=== PATIENT | female | born 1975 ===

== ENCOUNTER 2016-08-22 16:07 | Inpatient (IN) | payer OTHER ==
[2016-08-22 16:11] VITALS: BMI 22.4
[2016-08-22] MEDS ORDERED: Sodium Chloride 0.9% 1,000 ML IV ONE ×2 (16:38→20:30)
[2016-08-22] MEDS ORDERED: Sodium Chloride 0.9% 1,000 ML ONE (16:43)
[2016-08-22 17:00] LABS: CHLORIDE 96 mmol/L (98-107)
[2016-08-22 17:01] LABS: HEMATOCRIT 34.3 % (34.0-47.0); MEAN CELL VOLUME 77.9 fL (81.0-99.0); MEAN PLATELET VOLUME 8.1 fL (7.2-11.7); PLATELET COUNT 139 K/uL (130-400); POTASSIUM 3.2 mmol/L (3.6-5.2); RED CELL DISTRIBUTION WIDTH 14.8 % (11.5-14.5); SODIUM 135 mmol/L (132-148); WHITE BLOOD COUNT 6.1 K/uL (4.8-10.8)
[2016-08-22 17:03] LABS: ALKALINE PHOSPHATASE 71 U/L (38-126); ALT/SGPT 52 U/L (9-52); AST/SGOT 89 U/L (14-36); BLOOD UREA NITROGEN 14 mg/dL (7-17); CARBON DIOXIDE 25 mmol/L (22-30); GFR AFRICAN-AMERICAN > 60; TOTAL PROTEIN 7.2 g/dL (6.3-8.3)
[2016-08-22 17:04] LABS: CALCIUM 8.9 mg/dl (8.6-10.4); GLUCOSE,RANDOM 153 mg/dL (65-105)
[2016-08-22 17:15] LABS: RBC URINE 13 /hpf (0-3); URINE BILIRUBIN NEGATIVE (NEGATIVE); URINE BLOOD 2+ (NEGATIVE); URINE COLOR Yellow (YELLOW); URINE GLUCOSE (UA) NORMAL (Normal); URINE KETONE NEGATIVE (NEGATIVE); URINE LEUKOCYTE ESTERASE NEG Leu/uL (Negative); URINE PROTEIN NEGATIVE (NEGATIVE); URINE UROBILINOGEN NORMAL mg/dL (0.2-1.0); WBC URINE 1 /hpf (0-5)
[2016-08-22 17:40] LABS: EOS # 0.2 K/uL (0.0-0.7); LYMPH # 0.4 K/uL (1.0-4.3); MONO # 0.1 K/uL (0.0-0.8)
[2016-08-22 17:42] LABS: EOSINOPHIL 3 % (0-4); NEUTROPHIL 48 % (50-75); TOTAL CELLS COUNTED 100
[2016-08-22 18:11] LABS: PARASITE I.D. Plasmodium Vivax
[2016-08-22 18:19] LABS: INTRACELLULAR PARASITE POSITIVE (NEGATIVE)
--- NOTE | 2016-08-22 18:25 | C.PDOC ---
History Of Present Illness 41 year old patient presents to the emergency department complaining of a subjective fever, chills, and body aches since today. Patient has a history malaria from many years ago and she has been treated with "29 injections." Patient has not been to [place] in 5 years. Patient denies cough, shortness of breath, nausea, vomiting, abdominal pain, or diarrhea. Time Seen by Provider: 08/22/16 16:39 Chief Complaint (Nursing): Abdominal Pain History Per: Patient History/Exam Limitations: no limitations Onset/Duration Of Symptoms: Hrs (today) Current Symptoms Are (Timing): Still Present Context: Other Severity: Mild Pain Scale Rating Of: 3 Quality Of Discomfort: "Pain" Associated Symptoms: Fever, Chills Exacerbating Factors: None Alleviating Factors: None Last Bowel Movement: Today Recent travel outside of the [place]: No Past Medical History Reviewed: Historical Data, Nursing Documentation, Vital Signs Vital Signs: Last Vital Signs Temp 99.3 F 08/22/16 18:56 Pulse 99 H 08/22/16 18:56 Resp 20 08/22/16 18:56 BP 88/54 L 08/22/16 18:56 Pulse Ox 99 08/22/16 19:12 Family History: States: Unknown Family Hx - Social History Hx Alcohol Use: No Hx Substance Use: No - Immunization History Hx Tetanus Toxoid Vaccination: No Hx Influenza Vaccination: No Hx Pneumococcal Vaccination: No Review Of Systems Except As Marked, All Systems Reviewed And Found Negative. Constitutional: Positive for: Fever (subjective), Chills, Other (body aches) Respiratory: Negative for: Cough, Shortness of Breath Gastrointestinal: Negative for: Nausea, Vomiting, Abdominal Pain, Diarrhea Physical Exam - Physical Exam Appears: Non-toxic, Other (mild distress) Skin: Warm, Dry Head: Atraumatic, Normacephalic Eye(s): bilateral: Normal Inspection, PERRL, EOMI Ear(s): Bilateral: Normal Nose: Normal Oral Mucosa: Moist Throat: Normal Neck: Normal ROM, Supple Chest: Symmetrical Cardiovascular: Rhythm Regular Respiratory: Normal Breath Sounds, No Rales, No Rhonchi, No Wheezing Gastrointestinal/Abdominal: Soft, No Tenderness Back: Normal Inspection, No CVA Tenderness Extremity: Normal ROM Neurological/Psych: Oriented x3, Normal Speech, Normal Cognition Gait: Steady ED Course And Treatment - Laboratory Results Result Diagrams: 08/22/16 16:49 08/22/16 16:49 Lab Interpretation: Abnormal (41 Bands, smear + plasmodium vivax Malaria) ECG: Interpreted By Me ECG Rhythm: Sinus Rhythm ECG Interpretation: Normal Rate From EC O2 Sat by Pulse Oximetry: 99 (room air) Pulse Ox Interpretation: Normal - Radiology CXR: Interpreted by Me CXR Interpretation: Yes: No Acute Disease Progress Note: Plan: EKG, Labs, Chest x-ray, IV fluids, Toradol, Zofran Reevaluation Time: 18:27 Reassessment Condition: Improved - Physician Consult Information Outcome Of Conversation: 183: d/w Dr. Garcia, Hospitalist Director Work- ok to Adm to D Medical Decision Making Medical Decision Making: malaria, probably due to travel to [place]. defer inital treatment to ID consult per Hospitalist. 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 I have reviewed the chart and agree that the record accurately reflects my personal performance of the history, physical exam, medical decision making, and the department course for this patient. I have also personally directed, reviewed, and agree with the discharge instructions and disposition.
--- NOTE | 2016-08-22 19:12 | CP.PCM.HP ---
<Moises Tristan - Last Filed: 08/24/16 18:28> History of Present Illness - History of Present Illness History of Present Illness: HPI: Patient is a 41 year old [place] female, with PMHx of malaria, presents to the emergency department complaining of fever, chills, and body aches. She reports these symptoms began last evening and was associated with an episode of NBNB vomiting after eating. Pt reports fever was subjective, and headache was bilateral "squeezing pain" that was 8/10 at worst, but was relieved with Motrin. Patient has a history of two prior malaria infections in 1997 and 2003 and reports being treated with "29 injections." Patient was resident of [facility] during previous infections, but has lived in the [place] for the past three years. She has not been to [place] in 5 years, and denies other travel. She admits low back pain from "muscle pull" which happened two weeks ago. Patient denies cough , shortness of breath, chest pain, abdominal pain, or diarrhea. PMHx: Hypotension, Malaria (1997 and 2003 with unknown treatment) PSHx: (2011, no complications) SHx: denies tobacco, alcohol, illicit drugs; lives in [place], homemaker Allergies: NKA FHx: denies PMD: none Present on Admission - Present on Admission Any Indicators Present on Admission: No Review of Systems - Constitutional Constitutional: Chills, Fever, Headache - EENT Eyes: absent: Change in Vision Ears: absent: Decreased Hearing - Cardiovascular Cardiovascular: absent: Chest Pain, Chest Pain at Rest, Dyspnea, Rapid Heart Rate - Respiratory Respiratory: absent: Cough - Gastrointestinal Gastrointestinal: Vomiting (one episode, non-bloody). absent: Abdominal Pain, Nausea - Genitourinary Genitourinary: absent: Dysuria - Musculoskeletal Musculoskeletal: Back Pain (muscle pull recently). absent: Numbness, Tingling - Integumentary Integumentary: absent: Dry Skin, Wounds - Neurological Neurological: absent: Tingling, Weakness - Psychiatric Psychiatric: absent: Anxiety - Endocrine Endocrine: Fatigue - Hematologic/Lymphatic Hematologic: absent: Easy Bleeding, Easy Bruising Past Patient History - Infectious Disease Hx of Infectious Diseases: None - Past Social History Smoking Status: Never Smoked - PSYCHIATRIC Hx Substance Use: No - SURGICAL HISTORY Hx Section: Yes - ANESTHESIA Hx Anesthesia: Yes Hx Anesthesia Reactions: No Meds Allergies/Adverse Reactions: Allergies Allergy/AdvReac Type Severity Reaction Status Date / Time vancomycin AdvReac Intermediate ITCHING Verified 08/24/16 02:55 Physical Exam - Constitutional Appears: Non-toxic, No Acute Distress - Head Exam Head Exam: ATRAUMATIC, NORMAL INSPECTION, NORMOCEPHALIC - Eye Exam Eye Exam: EOMI Pupil Exam: PERRL - ENT Exam ENT Exam: Mucous Membranes Moist - Respiratory Exam Respiratory Exam: Clear to Auscultation Bilateral, NORMAL BREATHING PATTERN. absent: Rales, Rhonchi, Wheezes - Cardiovascular Exam Cardiovascular Exam: REGULAR RHYTHM, +S1, +S2 - GI/Abdominal Exam GI & Abdominal Exam: Normal Bowel Sounds, Soft, Tenderness (RUQ) - Extremities Exam Extremities exam: Positive for: normal inspection - Back Exam Back exam: absent: CVA tenderness (L), CVA tenderness (R) - Neurological Exam Neurological exam: Alert, Oriented x3 - Psychiatric Exam Psychiatric exam: Normal Affect - Skin Skin Exam: Normal Color, Warm Results - Vital Signs Recent Vital Signs: Last Vital Signs Temp 99.3 F 08/22/16 18:56 Pulse 99 H 08/22/16 18:56 Resp 20 08/22/16 18:56 BP 88/54 L 08/22/16 18:56 Pulse Ox 99 08/22/16 19:06 - Labs Result Diagrams: 08/22/16 16:49 08/22/16 16:49 Assessment & Plan - Assessment and Plan (Free Text) Assessment: 41 yo [place] female with PMHx of two prior malaria infections and hypotension, presenting with fever, chills, fatigue. 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 Plan: Malaria Admit to med/surg Hx of two prior infections w. unknown treatment (1997, 2003) Parasite smear - Plasmodium vivax ID consult: Dr. Leyva, cinthya appreciated - Malarone 250/100mg PO x 3 days, then Primaquine 26.3mg PO x 14 days Bandemia Left shift, 41 Bands WBC WNL f/u CBC in AM Fever Cyclical subjective for last 3 days Afebrile in hospital Tylenol 650mg PO Q6H PRN Isolated AST elevation AST 89 Monitor Abnormal UA UA (08/22/16): 2+blood Pt on day 3 of period Consider repeat Hx of hypotension Pt admits normal pressure 85/55 NS w. KCl 20meq @ 50cc Monitor Electrolyte abnormalities K 3.2 on presentation NS w. KCl 20meq @ 50cc f/u AM CMP Prophylaxis SCDs Pepcid 20mg PO BID Heparin 5000u Q12H <Julián Lara - Last Filed: 08/24/16 23:40> Results - Vital Signs Recent Vital Signs: Last Vital Signs Temp 98.2 F 08/24/16 16:00 Pulse 78 08/24/16 16:00 Resp 20 08/24/16 16:00 BP 111/70 08/24/16 16:00 Pulse Ox 100 08/24/16 16:00 - Labs Result Diagrams: 08/24/16 07:26 08/24/16 07:26 Labs: Laboratory Results - last 24 hr 08/24/16 08/24/16 08/24/16 07:26 07:26 07:26 WBC 8.4 RBC 4.17 Hgb 10.2 L Hct 32.3 L MCV 77.4 L MCH 24.5 L MCHC 31.7 L RDW 15.8 H Plt Count 160 MPV 8.6 Neut % (Auto) 81.1 H Lymph % (Auto) 15.8 L [place] % (Auto) 2.6 Eos % (Auto) 0.1 Baso % (Auto) 0.4 Neut # 6.8 Lymph # 1.3 [place] # 0.2 Eos # 0.0 Baso # 0.0 Retic Count Sodium 138 Potassium 4.2 Chloride 108 H Carbon Dioxide 24 Anion Gap 11 BUN 7 Creatinine 0.7 Est GFR ( Amer) > 60 Est GFR (Non-Af Amer) > 60 Random Glucose 132 H Calcium 7.1 L Phosphorus 2.2 L Magnesium 2.1 Iron 83 TIBC 375 % Saturation 22 Transferrin Ferritin 68.8 Total Bilirubin 0.7 AST 23 ALT 38 Alkaline Phosphatase 54 Lactate Dehydrogenase 409 Total Protein 6.3 Albumin 3.0 L Globulin 3.4 Albumin/Globulin Ratio 0.9 L 08/24/16 08/24/16 07:26 07:26 WBC RBC Hgb Hct MCV MCH MCHC RDW Plt Count MPV Neut % (Auto) Lymph % (Auto) Y[place] % (Auto) Eos % (Auto) Baso % (Auto) Neut # Lymph # [place] # Eos # Baso # Retic Count 0.8 Sodium Potassium Chloride Carbon Dioxide Anion Gap BUN Creatinine Est GFR ( Amer) Est GFR (Non-Af Amer) Random Glucose Calcium Phosphorus Magnesium Iron TIBC % Saturation Transferrin 263.30 Ferritin Total Bilirubin AST ALT Alkaline Phosphatase Lactate Dehydrogenase Total Protein Albumin Globulin Albumin/Globulin Ratio Attending/Attestation - Attestation I have personally seen and examined this patient.: Yes I have fully participated in the care of the patient.: Yes I have reviewed all pertinent clinical information: Yes
[2016-08-22] MEDS ORDERED: PROGUANIL PO ONE ×3 (21:15→23:00)
[2016-08-22] MEDS ORDERED: ATOVAQUONE PO ONE ×3 (21:15→23:00)
--- NOTE | 2016-08-23 07:39 | CP.PCM.PN ---
Addendum entered and electronically signed by Kirsten Sommer 08/23/16 13:15: Hepatitis panel negative Patient started on Rocephin 1gm daily as per Dr. Krishna empirically for leukocytosis f/u Anemia work up f/u LDH and haptoglobin NS @ 100cc/hr Original Note: <Kirsten Sommer - Last Filed: 08/23/16 09:27> Subjective - Date & Time of Evaluation Date of Evaluation: 08/23/16 Time of Evaluation: 07:00 - Subjective Subjective: PGY1 Medicine note for Dr. Krishna Patient seen and examined at bedside. Patient had no complaints overnight. She reported no fever, chills, or nausea overnight. She stated her bilateral LBP and neck pain had improved. The blisters on the left side of her mouth, that usually appear when the patient is having malaria, have now burst and are scabbing. Patient reports some pain when she swallows something due to the blisters. Patient denied headache, dizziness, chest pain, palpitations, SOB, cough, abd pain, nausea, vomiting, bowel/bladder complaints. Objective - Vital Signs/Intake and Output Vital Signs (last 24 hours): Temp Pulse Resp BP Pulse Ox 98.3 F 80 20 125/65 99 08/22/16 23:32 08/22/16 23:32 08/22/16 23:32 08/22/16 23:32 08/22/16 23:32 Intake and Output: 08/23/16 08/23/16 06:59 18:59 Intake Total 1650 Balance 1650 - Medications Medications: Current Medications Acetaminophen (Tylenol 325mg Tab) 650 mg PO Q6 PRN PRN Reason: Fever >100.4 F Atovaquone/Proguanil (Malarone 250 Mg-100 Mg) 4 tab PO DAILY [facility] Famotidine (Pepcid) 20 mg PO BID [facility] Heparin Sodium (Porcine) (Heparin) 5,000 units SC Q12 JOSE RAMON Last Admin: 08/22/16 22:13 Dose: 5,000 units Potassium Chloride 20 meq/ (Sodium Chloride) 1,010 mls @ 50 mls/hr IV .[id number] [facility] Last Admin: 08/22/16 22:11 Dose: 50 mls/hr Ondansetron HCl (Zofran Inj) 4 mg IVP Q6H [facility] Pneumococcal Polyvalent Vaccine (Pneumovax 23 Vaccine) 0.5 ml IM .ONCE ONE Stop: 08/24/16 10:01 - Constitutional Appears: Non-toxic, No Acute Distress - Head Exam Head Exam: ATRAUMATIC, NORMAL INSPECTION, NORMOCEPHALIC - Eye Exam Eye Exam: EOMI, Normal appearance, PERRL. absent: Conjunctival injection, Scleral icterus Pupil Exam: NORMAL ACCOMODATION - ENT Exam ENT Exam: Mucous Membranes Dry Additional comments: scabbed oral blisters on left upper and lower lip - Neck Exam Neck Exam: Full ROM, Normal Inspection. absent: Lymphadenopathy, Tenderness - Respiratory Exam Respiratory Exam: Clear to Ausculation Bilateral. absent: Accessory Muscle Use , Rales, Rhonchi, Wheezes, Respiratory Distress - Cardiovascular Exam Cardiovascular Exam: REGULAR RHYTHM, RRR, +S1, +S2. absent: Murmur - GI/Abdominal Exam GI & Abdominal Exam: Soft, Normal Bowel Sounds. absent: Distended, Firm, Guarding, Rigid, Tenderness - Extremities Exam Extremities Exam: Normal Capillary Refill, Normal Inspection. absent: Pedal Edema, Tenderness - Back Exam Back Exam: NORMAL INSPECTION. absent: CVA tenderness (L), CVA tenderness (R), rash noted, tenderness, vertebral tenderness - Neurological Exam Neurological Exam: Alert, Awake, Oriented x3 - Psychiatric Exam Psychiatric exam: Normal Affect, Normal Mood - Skin Skin Exam: Dry, Intact, Normal Color, Warm Assessment and Plan - Assessment and Plan (Free Text) Assessment: 41 year old female, with PMHx of malaria and low blood pressure, presents to the emergency department complaining of fever, chills, and body aches. Plan: Malaria -Admit to med/surg -Hx of two prior infections w. unknown treatment (1997, 2003) -Parasite smear - Plasmodium vivax -Blood parasites 1+ -ID consult: Dr. Leyva, help appreciated -Malarone 250/100mg 4 tab PO x 3 days --> then Primaquine 26.3mg PO x 14 days -Today is day 2 Malarone Leukocytosis -WBC 12.3 -Left shift, 41 Bands on admission f/u bands this AM -f/u blood culture, urine culture, procalcitonin as per Dr. Krishna Fever -Afebrile overnight -Cyclical subjective for last 3 days -Tylenol 650mg PO Q6H PRN Isolated AST elevation -AST 89 on admission --> 37 this AM -f/u Hep panel -Monitor Abnormal UA -UA (08/22/16): 2+blood -Pt on day 3 of period -Consider repeat Hx of hypotension -Pt admits normal pressure 85/55 -NS w. KCl 20meq @ 50cc -Monitor Electrolyte abnormalities -K 3.2 on presentation --> 3.7 this AM -NS w. KCl 20meq @ 50cc -Monitor Prophylaxis -SCDs -Pepcid 20mg PO BID -Heparin 5000u Q12H -Zofran 4mg IVP Q6 - on hold -Regular diet Will discuss with Dr. Tomi Sommer PGY1 <Sallie Krishna V - Last Filed: 08/23/16 20:30> Objective - Vital Signs/Intake and Output Vital Signs (last 24 hours): Temp Pulse Resp BP Pulse Ox 98.7 F 75 18 93/58 L 99 08/23/16 15:00 08/23/16 15:00 08/23/16 15:00 08/23/16 15:00 08/23/16 15:00 Intake and Output: 08/23/16 08/24/16 18:59 06:59 Intake Total 600 Balance 600 - Medications Medications: Current Medications Acetaminophen (Tylenol 325mg Tab) 650 mg PO Q6 PRN PRN Reason: Fever >100.4 F Atovaquone/Proguanil (Malarone 250 Mg-100 Mg) 4 tab PO DAILY [facility] Stop: 08/24/16 10:01 Famotidine (Pepcid) 20 mg PO BID [facility] Last Admin: 08/23/16 17:30 Dose: 20 mg Heparin Sodium (Porcine) (Heparin) 5,000 units SC Q12 [facility] Last Admin: 08/23/16 11:29 Dose: 5,000 units Ceftriaxone Sodium 1 gm/ (Sodium Chloride) 100 mls @ 100 mls/hr IVPB DAILY [facility] Last Admin: 08/23/16 13:46 Dose: 100 mls/hr Sodium Chloride (Sodium Chloride 0.9%) 1,000 mls @ 100 mls/hr IV .Q10H [facility] Last Admin: 08/23/16 13:48 Dose: 100 mls/hr Ondansetron HCl (Zofran Inj) 4 mg IVP Q6H [facility] Pneumococcal Polyvalent Vaccine (Pneumovax 23 Vaccine) 0.5 ml IM .ONCE ONE Stop: 08/24/16 10:01 - Labs Labs: 08/23/16 08:15 08/23/16 08:15 Attending/Attestation - Attestation I have personally seen and examined this patient.: Yes I have fully participated in the care of the patient.: Yes I have reviewed all pertinent clinical information, including history, physical exam and plan: Yes Notes (Text): Patient seen, examined, and case discussed with day-time resident. Patient primarily Chris speaking; translater per discussion, resident, [place] Chris speaking for the patient Patient seen this morning, patient primarily Chris speaking, complaining about body aches and pains and associated fever for 2 days. Patient has prior history of recurrent malaria at least twice, cannot recall what meds were used each time. Patient denies recent travel, denies sick contacts. Patient is currently on tail end of her period. Patient reports she has received the bcg vaccine ( stamp sonal noted on Right upper extremity) Patient ordered for blood cultures X2, procalcitonin, urine culture. Patient completed chest xray overnight. Patient started on Rocephin IV empiric therapy in addition to anti-malarial. Infectious disease on board-->help appreciated Discussed with ICU, in light of elevated procalcitonin (high source of bacteria cause for sepsis), repeat labs with VBG w shock, transfer to ICU for monitoring overnight. Discussed with charge nurse who is aware. Assessment/Plan 1) SIRS * Criteria: Bandemia: 41%, febrile: 100F * Leukocytosis: WBC 12.3 * f/u blood culture X2, urine culture (received) * Procalcitonin ordered--> 77.49 * Started on Rocephin 1 gram IV q daily * Infectious disease (Dr. Leyva) on board * Chest xray (08/23/16): poor inspiration with low lung volumes, mild crowded bronchovascular markings and mild bibasilar atelectasis. * Discussed with ICU, repeat blood work including CBC, CMP, Mag, Phosphorus, VBG w shock panel-->transferred to ICU to monitor overnight 2) Malaria * Infectious disease (Dr. Leyva) on the case-->help appreciated * Hx of two prior infections w. unknown treatment (1997, 2003) * Parasite smear - Plasmodium vivax; Blood parasites 1+ * Recommend for Malarone 250/100mg 4 tab PO x 3 days --> then Primaquine 26.3mg PO x 14 days * Monitor fever, white count, and liver function tests 3) Transaminitis * monitor LFTs * Hepatitis: negative 4) Abnormal UA * UA (08/22/16): 2+blood; patient is current on menstruation * Pending urine culture-->collected 5) Hx of hypotension * Patient reports prior history of hypotension; when seen by doctor in [place], does not seen one currently (takes [place] water etc to bring up at home) * Started on NS 100cc/hr * Keep suspicion for sepsis; patient currently fulfills requirement for SIRS; ordered for blood cultures, procalcitionin, urine culture * Started on Empiric broad spectrum IV abx 6) Hypokalemia * Normalized 7) Anemia * iron studies, ferritin, vitamin B12, folate, reti count, LDH, haptoglobin, occult blood * Malaria infection 8) Prophylaxis * SCDs b/l * Pepcid 20mg PO BID for GI ppx * Heparin 5000u Q12H for DVT ppx * Regular diet
[2016-08-23 08:22] LABS: BASO # 0.1 K/uL (0.0-0.2); BASO % 0.4 % (0.0-2.0); HEMATOCRIT 29.2 % (34.0-47.0); LYMPH # 1.8 K/uL (1.0-4.3); LYMPH % 14.5 % (20.0-40.0); MEAN CORPUSCULAR HEMOGLOBIN 24.6 pg (27.0-31.0); MEAN CORPUSCULAR HGB CONC 31.9 g/dL (33.0-37.0); MEAN PLATELET VOLUME 8.5 fL (7.2-11.7); RED CELL DISTRIBUTION WIDTH 15.1 % (11.5-14.5); WHITE BLOOD COUNT 12.3 K/uL (4.8-10.8)
[2016-08-23 08:38] LABS: CHLORIDE 105 mmol/L (98-107)
[2016-08-23 08:39] LABS: POTASSIUM 3.7 mmol/L (3.6-5.2); SODIUM 139 mmol/L (132-148)
[2016-08-23 08:41] LABS: ALB/GLOB RATIO 0.9 (1.0-2.1); ALKALINE PHOSPHATASE 49 U/L (38-126); AST/SGOT 37 U/L (14-36); BILIRUBIN,TOTAL 0.6 mg/dL (0.2-1.3); CARBON DIOXIDE 25 mmol/L (22-30); GFR AFRICAN-AMERICAN > 60
[2016-08-23 08:42] LABS: ALT/SGPT 37 U/L (9-52); BLOOD UREA NITROGEN 13 mg/dL (7-17); CALCIUM 7.2 mg/dl (8.6-10.4); GLUCOSE,RANDOM 80 mg/dL (65-105); MAGNESIUM 1.8 mg/dL (1.6-2.3); PHOSPHOROUS 2.5 mg/dL (2.5-4.5)
[2016-08-23] MEDS ORDERED: PROGUANIL PO SCH ×2 (10:00→18:00)
[2016-08-23] MEDS ORDERED: ATOVAQUONE PO SCH ×2 (10:00→18:00)
--- NOTE | 2016-08-23 10:44 | RAD ---
HISTORY: malaria, Adm COMPARISON: No prior. FINDINGS: LUNGS: Poor inspiration with low lung volumes, mild crowded bronchovascular markings and mild bibasilar atelectasis. . PLEURA: No significant pleural effusion identified, no pneumothorax apparent. CARDIOVASCULAR: Normal. OSSEOUS STRUCTURES: No significant abnormalities. VISUALIZED UPPER ABDOMEN: Normal. OTHER FINDINGS: None. IMPRESSION: Poor inspiration with low lung volumes, mild crowded bronchovascular markings and mild bibasilar atelectasis. .
[2016-08-23] MEDS: Sodium Chloride 0.9% 1,000 ML IV SCH ×2 (13:48→22:49)
--- NOTE | 2016-08-23 17:32 | CP.PCM.CON ---
History of Present Illness - History of Present Illness History of Present Illness: 41 year old patient presents to the emergency department complaining of a subjective fever, chills, and body aches since today. Patient has a history malaria from many years ago and she has been treated with "29 injections." Patient has not been to [facility] in 5 years. Patient denies cough, shortness of breath, nausea, vomiting, abdominal pain, or diarrhea. Review of Systems - Constitutional Constitutional: As Per HPI, Chills, Fever, Malaise, Weight Loss - EENT Eyes: absent: As Per HPI, Blind Spots, Blurred Vision, Change in Vision, Decreased Night Vision, Diplopia, Discharge, Dry Eye, Exophthalmos, Floaters, Irritation, Itchy Eyes, Loss of Peripheral Vision, Pain, Photophobia, Requires Corrective Lenses, Sees Flashes, Spots in Vision, Tunnel Vision, Other Visual Disturbances, Loss of Vision, Other Ears: absent: As Per HPI, Decreased Hearing, Ear Discharge, Ear Pain, Tinnitus, Abnormal Hearing, Disequilibrium, Dizziness, Other Nose/Mouth/Throat: absent: As Per HPI, Epistaxis, Nasal Congestion, Nasal Discharge, Nasal Obstruction, Nasal Trauma, Nose Pain, Post Nasal Drip, Sinus Pain, Sinus Pressure, Bleeding Gums, Change in Voice, Dental Pain, Dry Mouth, Dysphagia, Halitosis, Hoarsness, Lip Swelling, Mouth Lesions, Mouth Pain, Odynophagia, Sore Throat, Throat Swelling, Tongue Swelling, Facial Pain, Neck Pain, Neck Mass, Other - Breasts Breasts: absent: As Per HPI, Change in Shape, Mass, Pain, Nipple Discharge, Nipple Inversion, Skin Changes, Swelling, Other - Cardiovascular Cardiovascular: absent: As Per HPI, Acrocyanosis, Chest Pain, Chest Pain at Rest , Chest Pain with Activity, Claudication, Diaphoresis, Dyspnea, Dyspnea on Exertion, Edema, Irregular Heart Rhythm, Pain Radiating to Arm/Neck/Jaw, Leg Edema, Leg Ulcers, Lightheadedness, Orthopnea, Palpitations, Paroxysmal Nocturnal Dyspnea, Pedal Edema, Radiating Pain, Rapid Heart Rate, Slow Heart Rate, Syncope, Other - Respiratory Respiratory: absent: As Per HPI, Cough, Dyspnea, Hemoptysis, Dyspnea on Exertion , Wheezing, Snoring, Stridor, Pain on Inspiration, Chest Congestion, Excessive Mucous Production, Change in Mucous Color, Pain with Coughing, Other - Gastrointestinal Gastrointestinal: As Per HPI - Genitourinary Genitourinary: absent: As Per HPI, Change in Urinary Stream, Difficulty Urinating, Dysuria, Flank Pain, Hematuria, Pyuria, Nocturia, Urinary Incontinence, Urinary Frequency, Urinary Hesitance, Urinary Urgency, Voiding Freq/Small Amts, Freq UTI, Hx Renal/Bladder Calculi, Hx /Renal Surgery, Bladder Distension, Other - Reproductive: Female Reproductive:Female: absent: As Per HPI, Amenorrhea, Amenorrhea/ Control, Currently Menstual, Cycle <21 Days, Cycle >35 Days, Cycle Variable, Menses 1-7 Days, Menses >/= 8 Days, Menses Variable, Cycle > 4 Weeks Between, No Menses for 6 Months, Heavy Menses, Light Menses, Normal Menses, Spotting Between Cycles , S/P Hysterectomy, Menopausal, Post Menopausal, Premenarche, Abnormal Vaginal Bleeding, Dysmenorrhea, Dyspareunia, Genital Lesions, Genital Pruritis, Pelvic Pain, Prolapse Symptoms, Sexual Dysfunction, Vaginal Discharge, Vaginal Dryness , Vaginal Odor, Vaginal Pruritis, Other - Menstruation Menstruation: absent: As Per HPI, Amenorrhea, Amenorrhea/ Control, Currently Menstual, Cycle <21 Days, Cycle >35 Days, Cycle Variable, Menses 1-7 Days, Menses >/= 8 Days, Menses Variable, Cycle > 4 Weeks Between, No Menses for 6 Months, Heavy Menses, Light Menses, Normal Menses, Spotting Between Cycles , S/P Hysterectomy, Menopausal, Post Menopausal, Premenarche, Abnormal Vaginal Bleeding, Dysmenorrhea, Other - Musculoskeletal Musculoskeletal: absent: As Per HPI, Abnormal Gait, Arthralgias, Atrophy, Back Pain, Deformity, Joint Swelling, Limited Range of Motion, Loss of Height, Muscle Cramps, Muscle Weakness, Myalgias, Neck Pain, Numbness, Radiating Pain into Limb, Stiffness, Tingling, Other - Integumentary Integumentary: absent: As Per HPI, Acne, Alopecia, Bleeding Lesions, Change in Hair, Change in Nails, Change in Pigmentation, Changing Lesions, Dry Skin, Erythema, Furuncle, Hirsutism, Lesions, New Lesions, Non-Healing Lesions, Photosensitivity, Pruritus, Rash, Skin Pain, Skin Ulcer, Sores, Striae, Swelling , Unusual Bruising, Wounds, Jaundice, Other - Neurological Neurological: absent: As Per HPI, Abnormal Gait, Abnormal Hearing, Abnormal Movements, Abnormal Speech, Behavioral Changes, Burning Sensations, Confusion, Convulsions, Disequilibrium, Dizziness, Numbness, Focal Weakness, Frequent Falls , Headaches, Lack of Coordination, Loss of Vision, Memory Loss, Paresthesias, Radicular Pain, Restless Legs, Sensory Deficit, Syncope, Tingling, Tremor, Vertigo, Weakness, Other Visual Disturbances, Other - Psychiatric Psychiatric: absent: As Per HPI, Abnormal Sleep Pattern, Anhedonia, Anxiety, Auditory Hallucinations, Behavioral Changes, Change in Appetite, Change in Libido, Confusion, Depression, Difficulty Concentrating, Hallucinations, Homicidal Ideation, Hopelessness, Irritability, Memory Loss, Mood Swings, Panic Attacks, Paranoia, Suicidal Ideation, Visual Hallucinations, Tactile Hallucinations, Other Past Patient History - Infectious Disease Hx of Infectious Diseases: None - Past Medical History & Family History Past Medical History?: Yes - Past Social History Smoking Status: Never Smoked - CARDIAC Hx Hypotension: Yes - PULMONARY Hx Respiratory Disorders: No - NEUROLOGICAL Hx Neurological Disorder: No - HEENT Hx HEENT Problems: No - RENAL Hx Chronic Kidney Disease: No - ENDOCRINE/METABOLIC Hx Endocrine Disorders: No - HEMATOLOGICAL/ONCOLOGICAL Hx Blood Disorders: No - INTEGUMENTARY Hx Dermatological Problems: No - MUSCULOSKELETAL/RHEUMATOLOGICAL Hx Musculoskeletal Disorders: No Hx Falls: No - GASTROINTESTINAL Hx Gastrointestinal Disorders: No - GENITOURINARY/GYNECOLOGICAL Hx Genitourinary Disorders: No - PSYCHIATRIC Hx Substance Use: No - SURGICAL HISTORY Hx Section: Yes - ANESTHESIA Hx Anesthesia: Yes Hx Anesthesia Reactions: No Meds Allergies/Adverse Reactions: Allergies Allergy/AdvReac Type Severity Reaction Status Date / Time No Known Allergies Allergy Verified 08/22/16 16:09 - Medications Medications: Current Medications Acetaminophen (Tylenol 325mg Tab) 650 mg PO Q6 PRN PRN Reason: Fever >100.4 F Atovaquone/Proguanil (Malarone 250 Mg-100 Mg) 4 tab PO DAILY [facility] Stop: 08/24/16 10:01 Famotidine (Pepcid) 20 mg PO BID [facility] Last Admin: 08/23/16 11:29 Dose: 20 mg Heparin Sodium (Porcine) (Heparin) 5,000 units SC Q12 [facility] Last Admin: 06/02/17 11:29 Dose: 5,000 units Ceftriaxone Sodium 1 gm/ (Sodium Chloride) 100 mls @ 100 mls/hr IVPB DAILY [facility] Last Admin: 08/23/16 13:46 Dose: 100 mls/hr Sodium Chloride (Sodium Chloride 0.9%) 1,000 mls @ 100 mls/hr IV .Q10H [facility] Last Admin: 08/23/16 13:48 Dose: 100 mls/hr Ondansetron HCl (Zofran Inj) 4 mg IVP Q6H [facility] Pneumococcal Polyvalent Vaccine (Pneumovax 23 Vaccine) 0.5 ml IM .ONCE ONE Stop: 08/24/16 10:01 Physical Exam - Constitutional Appears: Non-toxic, Chronically Ill - Head Exam Head Exam: NORMOCEPHALIC - Eye Exam Eye Exam: PERRL. absent: Scleral icterus - ENT Exam ENT Exam: Mucous Membranes Dry, Normal External Ear Exam - Neck Exam Neck exam: Negative for: Lymphadenopathy - Respiratory Exam Respiratory Exam: Decreased Breath Sounds, Clear to Auscultation Bilateral - Cardiovascular Exam Cardiovascular Exam: REGULAR RHYTHM, +S1, +S2 - GI/Abdominal Exam GI & Abdominal Exam: Diminished Bowel Sounds, Soft. absent: Tenderness - Rectal Exam Rectal Exam: Deferred - Exam Exam: NORMAL INSPECTION - Extremities Exam Extremities exam: Negative for: calf tenderness, pedal edema - Back Exam Back exam: absent: CVA tenderness (L), CVA tenderness (R) - Neurological Exam Neurological exam: Alert, CN II-XII Intact, Oriented x3, Reflexes Normal - Psychiatric Exam Psychiatric exam: Normal Mood Results - Vital Signs Recent Vital Signs: Last Vital Signs Temp 98.7 F 08/23/16 15:00 Pulse 75 08/23/16 15:00 Resp 18 08/23/16 15:00 BP 93/58 L 08/23/16 15:00 Pulse Ox 99 08/23/16 15:00 - Labs Result Diagrams: 08/23/16 08:15 08/23/16 08:15 Labs: Laboratory Results - last 24 hr 08/23/16 08/23/16 08/23/16 08:15 08:15 09:42 WBC 12.3 H D RBC 3.79 L Hgb 9.3 L Hct 29.2 L MCV 77.0 L MCH 24.6 L MCHC 31.9 L RDW 15.1 H Plt Count 138 MPV 8.5 Neut % (Auto) 77.1 H Lymph % (Auto) 14.5 L [place] % (Auto) 8.0 Eos % (Auto) 0.0 Baso % (Auto) 0.4 Neut # 9.5 H Lymph # 1.8 [place] # 1.0 H Eos # 0.0 Baso # 0.1 Sodium 139 Potassium 3.7 Chloride 105 Carbon Dioxide 25 Anion Gap 13 BUN 13 Creatinine 0.7 Est GFR ( Amer) > 60 Est GFR (Non-Af Amer) > 60 Random Glucose 80 Calcium 7.2 L Phosphorus 2.5 Magnesium 1.8 Total Bilirubin 0.6 AST 37 H D ALT 37 Alkaline Phosphatase 49 Total Protein 6.0 L Albumin 2.9 L Globulin 3.1 Albumin/Globulin Ratio 0.9 L Procalcitonin 77.49 H Hepatitis A IgM Ab Hep Bs Antigen Hep B Core IgM Ab Hepatitis C Antibody 08/23/16 09:48 WBC RBC Hgb Hct MCV MCH MCHC RDW Plt Count MPV Neut % (Auto) Lymph % (Auto) [place] % (Auto) Eos % (Auto) Baso % (Auto) Neut # Lymph # [place] # Eos # Baso # Sodium Potassium Chloride Carbon Dioxide Anion Gap BUN Creatinine Est GFR ( Amer) Est GFR (Non-Af Amer) Random Glucose Calcium Phosphorus Magnesium Total Bilirubin AST ALT Alkaline Phosphatase Total Protein Albumin Globulin Albumin/Globulin Ratio Procalcitonin Hepatitis A IgM Ab Negative Hep Bs Antigen Negative Hep B Core IgM Ab Negative Hepatitis C Antibody Negative Assessment & Plan (1) Malaria by plasmodium vivax Status: Acute - Assessment and Plan (Free Text) Assessment: cont malarone x 3 days then primaquine x 14 days follow up smears
--- NOTE | 2016-08-23 19:14 | CARD ---
APPROVED REPORT EKG Measurement Heart [id number] <Conclusion> Normal sinus rhythm Normal ECG
[2016-08-23 20:35] LABS: VENOUS BLOOD GAS PCO2 40 mmHg (40-60)
[2016-08-23 20:36] LABS: BASO % 0.3 % (0.0-2.0); EOS # 0.1 K/uL (0.0-0.7); EOS % 0.6 % (0.0-4.0); HEMATOCRIT 28.7 % (34.0-47.0); LYMPH # 2.3 K/uL (1.0-4.3); LYMPH % 23.2 % (20.0-40.0); MEAN CELL VOLUME 76.7 fL (81.0-99.0); MEAN CORPUSCULAR HGB CONC 31.3 g/dL (33.0-37.0); MEAN PLATELET VOLUME 8.2 fL (7.2-11.7); MONO % 9.9 % (0.0-10.0); RED CELL DISTRIBUTION WIDTH 15.7 % (11.5-14.5)
[2016-08-23 20:46] LABS: CHLORIDE 106 mmol/L (98-107); POTASSIUM 3.5 mmol/L (3.6-5.2); SODIUM 138 mmol/L (132-148)
[2016-08-23 20:48] LABS: ALB/GLOB RATIO 0.9 (1.0-2.1); ALKALINE PHOSPHATASE 51 U/L (38-126); AST/SGOT 31 U/L (14-36); BILIRUBIN,TOTAL 0.5 mg/dL (0.2-1.3); CARBON DIOXIDE 24 mmol/L (22-30); GFR AFRICAN-AMERICAN > 60; TOTAL PROTEIN 6.2 g/dL (6.3-8.3)
[2016-08-23 20:49] LABS: ALT/SGPT 42 U/L (9-52); BLOOD UREA NITROGEN 9 mg/dL (7-17); CALCIUM 7.1 mg/dl (8.6-10.4); GLUCOSE,RANDOM 78 mg/dL (65-105); MAGNESIUM 2.1 mg/dL (1.6-2.3); PHOSPHOROUS 2.9 mg/dL (2.5-4.5)
[2016-08-23] MEDS ORDERED: Vancomycin 1 gm/NS 200 ml 1 GM/200 ML BAG IVPB ONE (21:00)
[2016-08-24] MEDS ORDERED: DiphenhydrAMINE 50 mg/ml Inj IVP STA (00:54)
[2016-08-24] MEDS ORDERED: MethylPREDNISolone 40 mg Vial IVP STA (00:55)
--- NOTE | 2016-08-24 02:12 | CP.PCM.PN ---
Subjective - Date & Time of Evaluation Date of Evaluation: 08/24/16 Time of Evaluation: 01:00 - Subjective Subjective: Patient seen and examined at bedside. The blisters on the left side of her mouth, that usually appear when the patient is having malaria, have now burst and are scabbing. Patient reports some pain when she swallows something due to the blisters. Patient denied headache, dizziness, chest pain, palpitations, SOB , cough, abd pain, nausea, vomiting, bowel/bladder complaints. Overnight the patient felt like she was having an allergic reaction to the Vanc. She reports extreme itchiness over her chest, head, and back. She was given Benadryl, Pepcid, and Solumedrol IV. She denied cough, difficulties breathing or swelling of her tongue or lips. Will continue to monitor. Objective - Vital Signs/Intake and Output Vital Signs (last 24 hours): Temp Pulse Resp BP Pulse Ox 97.8 F 81 16 121/76 98 08/23/16 23:55 08/23/16 23:55 08/23/16 23:55 08/23/16 23:55 08/23/16 23:55 Intake and Output: 08/23/16 08/24/16 18:59 06:59 Intake Total 600 1100 Balance 600 1100 - Medications Medications: Current Medications Atovaquone/Proguanil (Malarone 250 Mg-100 Mg) 4 tab PO DAILY [facility] Stop: 08/24/16 10:01 Famotidine (Pepcid) 20 mg PO BID [facility] Last Admin: 08/23/16 17:30 Dose: 20 mg Heparin Sodium (Porcine) (Heparin) 5,000 units SC Q12 [facility] Last Admin: 08/23/16 21:33 Dose: 5,000 units Ceftriaxone Sodium 1 gm/ (Sodium Chloride) 100 mls @ 100 mls/hr IVPB DAILY [facility] Last Admin: 08/23/16 13:46 Dose: 100 mls/hr Sodium Chloride (Sodium Chloride 0.9%) 1,000 mls @ 100 mls/hr IV .Q10H [facility] Last Admin: 08/23/16 22:49 Dose: Not Given Ondansetron HCl (Zofran Inj) 4 mg IVP Q6H [facility] Pneumococcal Polyvalent Vaccine (Pneumovax 23 Vaccine) 0.5 ml IM .ONCE ONE Stop: 06/03/17 10:01 Saccharomyces Boulardii (Florastor) 250 mg PO BID [facility] - Labs Labs: 08/23/16 20:33 08/23/16 20:33 - Constitutional Appears: Non-toxic, No Acute Distress - Head Exam Head Exam: ATRAUMATIC, NORMAL INSPECTION - Eye Exam Eye Exam: EOMI Pupil Exam: NORMAL ACCOMODATION - ENT Exam ENT Exam: Mucous Membranes Moist - Respiratory Exam Respiratory Exam: Clear to Ausculation Bilateral, NORMAL BREATHING PATTERN. absent: Respiratory Distress - Cardiovascular Exam Cardiovascular Exam: REGULAR RHYTHM, +S1, +S2 - GI/Abdominal Exam GI & Abdominal Exam: Soft, Normal Bowel Sounds. absent: Distended, Firm, Guarding, Tenderness - Extremities Exam Extremities Exam: Normal Inspection - Back Exam Back Exam: NORMAL INSPECTION - Neurological Exam Neurological Exam: Alert, Awake, Oriented x3 - Psychiatric Exam Psychiatric exam: Normal Affect, Normal Mood - Skin Skin Exam: Dry, Intact, Normal Color, Warm Additional comments: Scabes on lips Assessment and Plan - Assessment and Plan (Free Text) Assessment: Malaria -Admit to med/surg -Hx of two prior infections w. unknown treatment (1997, 2003) -Parasite smear - Plasmodium vivax -Blood parasites 1+ -ID consult: Dr. Leyva, help appreciated -Malarone 250/100mg 4 tab PO x 3 days --> then Primaquine 26.3mg PO x 14 days -Today is day 3 Malarone Itchiness Possible allergic rxn to vanc No signs of anaphylaxis Benadryl, Pepcid, SoluMedrol IV x 1 dose Monitor Leukocytosis -WBC 12.3 -Left shift, 41 Bands on admission f/u bands this AM -f/u blood culture, urine culture - procalcitonin 77.49 - VBG lactate = 1 Fever -Afebrile overnight -Cyclical subjective for last 3 days -Tylenol 650mg PO Q6H PRN Isolated AST elevation -AST 89 on admission --> 37 this AM -Hepatitis negative -Monitor Abnormal UA -UA (08/22/16): 2+blood -Pt on day 3 of period -Consider repeat Hx of hypotension -Pt admits normal pressure 85/55 -NS w. KCl 20meq @ 50cc -Monitor Electrolyte abnormalities -K 3.2 on presentation --> 3.7 this AM -NS w. KCl 20meq @ 50cc -Monitor Prophylaxis -SCDs -Pepcid 20mg PO BID -Heparin 5000u Q12H -Zofran 4mg IVP Q6 - on hold -Regular diet
[2016-08-24 07:43] LABS: BASO % 0.4 % (0.0-2.0); EOS % 0.1 % (0.0-4.0); HEMATOCRIT 32.3 % (34.0-47.0); LYMPH # 1.3 K/uL (1.0-4.3); LYMPH % 15.8 % (20.0-40.0); MEAN CELL VOLUME 77.4 fL (81.0-99.0); MEAN CORPUSCULAR HEMOGLOBIN 24.5 pg (27.0-31.0); MEAN CORPUSCULAR HGB CONC 31.7 g/dL (33.0-37.0); MEAN PLATELET VOLUME 8.6 fL (7.2-11.7); MONO # 0.2 K/uL (0.0-0.8); MONO % 2.6 % (0.0-10.0); RED CELL DISTRIBUTION WIDTH 15.8 % (11.5-14.5); WHITE BLOOD COUNT 8.4 K/uL (4.8-10.8)
[2016-08-24 07:55] LABS: CHLORIDE 108 mmol/L (98-107); SODIUM 138 mmol/L (132-148)
[2016-08-24 07:56] LABS: GFR AFRICAN-AMERICAN > 60; POTASSIUM 4.2 mmol/L (3.6-5.2)
[2016-08-24 07:57] LABS: ALB/GLOB RATIO 0.9 (1.0-2.1); ALKALINE PHOSPHATASE 54 U/L (38-126); ALT/SGPT 38 U/L (9-52); AST/SGOT 23 U/L (14-36); BILIRUBIN,TOTAL 0.7 mg/dL (0.2-1.3); BLOOD UREA NITROGEN 7 mg/dL (7-17); CARBON DIOXIDE 24 mmol/L (22-30); GLUCOSE,RANDOM 132 mg/dL (65-105); PHOSPHOROUS 2.2 mg/dL (2.5-4.5); TOTAL PROTEIN 6.3 g/dL (6.3-8.3)
[2016-08-24 07:58] LABS: CALCIUM 7.1 mg/dl (8.6-10.4); MAGNESIUM 2.1 mg/dL (1.6-2.3)
[2016-08-24 08:11] VITALS: RESP 20
[2016-08-24 08:15] LABS: IRON 83 ug/dL (37-170)
[2016-08-24] MEDS ORDERED: ATOVAQUONE PO SCH (10:00)
[2016-08-24] MEDS ORDERED: PROGUANIL PO SCH (10:00)
[2016-08-24] MEDS ORDERED: Pneumococcal 23-Valent Vaccine IM ONE (10:00)
[2016-08-24] MEDS: Saccharomyces Boulardi 250 mg Cap PO SCH ×2 (10:02→17:55)
[2016-08-24] MEDS: Sodium Chloride 0.9% 1,000 ML IV SCH ×3 (10:14→21:30)
--- NOTE | 2016-08-25 02:36 | CP.PCM.PN ---
<Parul Rubalcava - Last Filed: 08/25/16 02:31> Subjective - Date & Time of Evaluation Date of Evaluation: 08/25/16 Time of Evaluation: 02:30 - Subjective Subjective: Patient seen and examined at bedside. No new complaints. Itchiness has resolved.The blisters on the left side of her mouth, that usually appear when the patient is having malaria, have now burst and are scabbing. Patient reports some pain when she swallows something due to the blisters. Patient denied headache, dizziness, chest pain, palpitations, SOB, cough, abd pain, nausea, vomiting, bowel/bladder complaints. Objective - Vital Signs/Intake and Output Vital Signs (last 24 hours): Temp Pulse Resp BP Pulse Ox 98.7 F 80 20 95/60 L 98 08/25/16 00:25 08/25/16 00:25 08/25/16 00:25 08/25/16 00:25 08/25/16 00:25 Intake and Output: 08/24/16 08/25/16 18:59 06:59 Intake Total 1000 Balance 1000 - Medications Medications: Current Medications Famotidine (Pepcid) 20 mg PO BID [facility] Last Admin: 08/24/16 17:55 Dose: 20 mg Heparin Sodium (Porcine) (Heparin) 5,000 units SC Q12 [facility] Last Admin: 08/24/16 21:29 Dose: 5,000 units Ceftriaxone Sodium 1 gm/ (Sodium Chloride) 100 mls @ 100 mls/hr IVPB DAILY [facility] Last Admin: 08/24/16 10:03 Dose: 100 mls/hr Sodium Chloride (Sodium Chloride 0.9%) 1,000 mls @ 100 mls/hr IV .Q10H [facility] Last Admin: 08/24/16 21:30 Dose: Not Given Ondansetron HCl (Zofran Inj) 4 mg IVP Q6H [facility] Primaquine Phosphate (Primaquine) 26.3 mg PO DAILY [facility] Stop: 09/08/16 10:01 Saccharomyces Boulardii (Florastor) 250 mg PO BID [facility] Last Admin: 08/24/16 17:55 Dose: 250 mg - Labs Labs: 08/24/16 07:26 08/24/16 07:26 - Constitutional Appears: Non-toxic, No Acute Distress - Head Exam Head Exam: NORMAL INSPECTION - Eye Exam Eye Exam: EOMI, PERRL - ENT Exam Additional comments: mouth blisters scabbing over - Respiratory Exam Respiratory Exam: Clear to Ausculation Bilateral, NORMAL BREATHING PATTERN. absent: Respiratory Distress - Cardiovascular Exam Cardiovascular Exam: REGULAR RHYTHM, +S1, +S2 - GI/Abdominal Exam GI & Abdominal Exam: Soft, Normal Bowel Sounds. absent: Distended, Firm, Guarding, Tenderness - Extremities Exam Extremities Exam: Normal Inspection. absent: Calf Tenderness, Pedal Edema - Back Exam Back Exam: NORMAL INSPECTION. absent: CVA tenderness (L), CVA tenderness (R), paraspinal tenderness - Neurological Exam Neurological Exam: Alert, Awake, CN II-XII Intact, Normal Gait, Oriented x3 - Psychiatric Exam Psychiatric exam: Normal Affect, Normal Mood - Skin Skin Exam: Dry, Intact, Normal Color, Warm Assessment and Plan - Assessment and Plan (Free Text) Assessment: Malaria -Admit to med/surg -Hx of two prior infections w. unknown treatment (1997, 2003) -Parasite smear - Plasmodium vivax -Blood parasites 1+ -ID consult: Dr. Leyva, help appreciated -Malarone 250/100mg 4 tab PO x 3 days (completed) --> then Primaquine 26.3mg PO x 14 days (08/25-09/08) Itchiness Possible allergic rxn to vanc - resolving No signs of anaphylaxis Benadryl, Pepcid, SoluMedrol IV x 1 dose Monitor - Vanc discontinued Leukocytosis -WBC 8.4 from 12.3 - improving -Left shift, 41 Bands on admission - no bands today -blood culture, urine culture - negative - procalcitonin 77.49 - VBG lactate = 1 - Ceftriaxone 1gm IVPB daily - Vanc discontinued Fever -Afebrile overnight -Cyclical subjective for last 3 days -Tylenol 650mg PO Q6H PRN Isolated AST elevation -AST 89 on admission now wnl -Hepatitis negative -Monitor Abnormal UA -UA (08/22/16): 2+blood -Pt on day 5 of period -Consider repeat Hx of hypotension -Pt admits normal pressure 85/55 -NS w. KCl 20meq @ 50cc -Monitor Electrolyte abnormalities -K 3.2 on presentation --> 3.7 this AM -NS w. KCl 20meq @ 50cc -Monitor Prophylaxis -SCDs -Pepcid 20mg PO BID -Heparin 5000u Q12H -Zofran 4mg IVP Q6 - on hold -Regular diet <Sallie Krishna V - Last Filed: 08/25/16 16:26> Objective - Vital Signs/Intake and Output Vital Signs (last 24 hours): Temp Pulse Resp BP Pulse Ox 98.5 F 75 20 111/74 98 08/25/16 08:39 08/25/16 08:39 08/25/16 08:39 08/25/16 08:39 08/25/16 00:25 Intake and Output: 08/25/16 08/25/16 06:59 18:59 Intake Total 800 Balance 800 - Medications Medications: Current Medications Famotidine (Pepcid) 20 mg PO BID [facility] Last Admin: 08/25/16 11:32 Dose: 20 mg Heparin Sodium (Porcine) (Heparin) 5,000 units SC Q12 [facility] Last Admin: 08/25/16 11:32 Dose: 5,000 units Ceftriaxone Sodium 1 gm/ (Sodium Chloride) 100 mls @ 100 mls/hr IVPB DAILY [facility] Last Admin: 08/25/16 11:32 Dose: 100 mls/hr Sodium Chloride (Sodium Chloride 0.9%) 1,000 mls @ 100 mls/hr IV .Q10H [facility] Last Admin: 08/25/16 15:05 Dose: 100 mls/hr Ondansetron HCl (Zofran Inj) 4 mg IVP Q6H [facility] Primaquine Phosphate (Primaquine) 26.3 mg PO DAILY [facility] Stop: 09/08/16 10:01 Last Admin: 08/25/16 11:31 Dose: 26.3 mg Saccharomyces Boulardii (Florastor) 250 mg PO BID [facility] Last Admin: 08/25/16 11:32 Dose: 250 mg - Labs Labs: 08/24/16 07:26 08/24/16 07:26 Attending/Attestation - Attestation I have personally seen and examined this patient.: Yes I have fully participated in the care of the patient.: Yes I have reviewed all pertinent clinical information, including history, physical exam and plan: Yes Notes (Text): Patient seen, examined, and case discussed with day-time resident. Patient reports she is feeling alot better. Patient's mouth lesion are healing. Patient reports she is less itchy. Patient is pending blood work today. Ordered for a repeat procalcitonin tomorrow. Assessment/Plan 1) Malaria -Admit to med/surg -Hx of two prior infections w. unknown treatment (1997, 2003) -Parasite smear - Plasmodium vivax -Blood parasites 1+ -ID consult: Dr. Leyva, help appreciated -Malarone 250/100mg 4 tab PO x 3 days (completed) --> then Primaquine 26.3mg PO x 14 days (08/25-09/08) 2) Allergic reaction - Patient had severe pruritus to Vancomycin; Given Solumedrol/Pepcid/Benadryl; improving -No sign of anaphylaxis 3) SIRS - Pending blood work today - afebrile, improving - Procalcitonin: 77.49-->ordered for repeat tomorrow - Blood culture (08/23/16): no growth for 48 hours X2 - Urine culture (08/23/16): no growth - Rocephin 1 gram IV q daily (active since 08/23/16) 4) Fever -Afebrile overnight -Off tylenol 5) Isolated AST elevation -within normal limit -Hepatitis negative -Monitor 5) Abnormal UA -UA (08/22/16): 2+blood; patient is on her menstruation -Urine culture: no growth 6) Hx of hypotension -normotensive -IV fluids 7) Electrolyte abnormalities -Pending blood work today -Monitor 8)Prophylaxis -SCDs -Pepcid 20mg PO BID -Heparin 5000u Q12H -Zofran 4mg IVP Q6H -Regular diet Disposition: Patient likely to be discharge on Anti-malarial tomorrow pending procalcitonin
[2016-08-25] MEDS: Sodium Chloride 0.9% 1,000 ML IV SCH ×2 (05:00→15:05)
[2016-08-25] MEDS ORDERED: ATOVAQUONE PO SCH (10:00)
[2016-08-25] MEDS ORDERED: PROGUANIL PO SCH (10:00)
[2016-08-25] MEDS: Primaquine 26.3 mg Tab PO SCH (11:31)
[2016-08-25] MEDS: Saccharomyces Boulardi 250 mg Cap PO SCH ×2 (11:32→17:27)
--- NOTE | 2016-08-25 16:12 | CP.PCM.PN ---
Subjective - Date & Time of Evaluation Date of Evaluation: 08/25/16 Time of Evaluation: 08:00 - Subjective Subjective: less fever feeling better completed primary course of antimalarial rx will need primaquine Objective - Vital Signs/Intake and Output Vital Signs (last 24 hours): Temp Pulse Resp BP Pulse Ox 98.5 F 75 20 111/74 98 08/25/16 08:39 08/25/16 08:39 08/25/16 08:39 08/25/16 08:39 08/25/16 00:25 Intake and Output: 08/25/16 08/25/16 06:59 18:59 Intake Total 800 Balance 800 - Medications Medications: Current Medications Famotidine (Pepcid) 20 mg PO BID [facility] Last Admin: 08/25/16 11:32 Dose: 20 mg Heparin Sodium (Porcine) (Heparin) 5,000 units SC Q12 [facility] Last Admin: 08/25/16 11:32 Dose: 5,000 units Ceftriaxone Sodium 1 gm/ (Sodium Chloride) 100 mls @ 100 mls/hr IVPB DAILY [facility] Last Admin: 08/25/16 11:32 Dose: 100 mls/hr Sodium Chloride (Sodium Chloride 0.9%) 1,000 mls @ 100 mls/hr IV .Q10H [facility] Last Admin: 08/25/16 15:05 Dose: 100 mls/hr Ondansetron HCl (Zofran Inj) 4 mg IVP Q6H [facility] Primaquine Phosphate (Primaquine) 26.3 mg PO DAILY [facility] Stop: 09/08/16 10:01 Last Admin: 08/25/16 11:31 Dose: 26.3 mg Saccharomyces Boulardii (Florastor) 250 mg PO BID [facility] Last Admin: 08/25/16 11:32 Dose: 250 mg - Labs Labs: 08/24/16 07:26 08/24/16 07:26 Assessment and Plan (1) Malaria by plasmodium vivax Status: Acute
[2016-08-25 17:26] LABS: BASO % 0.2 % (0.0-2.0); EOS # 0.1 K/uL (0.0-0.7); EOS % 1.2 % (0.0-4.0); HEMATOCRIT 31.6 % (34.0-47.0); LYMPH # 2.4 K/uL (1.0-4.3); LYMPH % 27.7 % (20.0-40.0); MEAN CELL VOLUME 77.3 fL (81.0-99.0); MEAN CORPUSCULAR HEMOGLOBIN 24.6 pg (27.0-31.0); MEAN CORPUSCULAR HGB CONC 31.8 g/dL (33.0-37.0); MEAN PLATELET VOLUME 8.5 fL (7.2-11.7); MONO # 0.7 K/uL (0.0-0.8); MONO % 7.8 % (0.0-10.0); NRBC % 0.1 % (0.0-2.0); RED CELL DISTRIBUTION WIDTH 16.3 % (11.5-14.5); WHITE BLOOD COUNT 8.6 K/uL (4.8-10.8)
[2016-08-25 17:45] LABS: CHLORIDE 107 mmol/L (98-107); POTASSIUM 4.1 mmol/L (3.6-5.2); SODIUM 138 mmol/L (132-148)
[2016-08-25 17:48] LABS: GFR AFRICAN-AMERICAN > 60
[2016-08-25 17:49] LABS: BLOOD UREA NITROGEN 6 mg/dL (7-17); CALCIUM 7.6 mg/dl (8.6-10.4); CARBON DIOXIDE 25 mmol/L (22-30); GLUCOSE,RANDOM 81 mg/dL (65-105)
[2016-08-25 23:41] VITALS: O2SAT 98
[2016-08-26] MEDS: Sodium Chloride 0.9% 1,000 ML IV SCH ×2 (01:45→10:56)
[2016-08-26 07:11] LABS: BASO % 0.5 % (0.0-2.0); EOS # 0.3 K/uL (0.0-0.7); EOS % 3.3 % (0.0-4.0); HEMATOCRIT 32.4 % (34.0-47.0); LYMPH # 2.7 K/uL (1.0-4.3); LYMPH % 33.9 % (20.0-40.0); MEAN CORPUSCULAR HEMOGLOBIN 24.2 pg (27.0-31.0); MEAN CORPUSCULAR HGB CONC 31.5 g/dL (33.0-37.0); MEAN PLATELET VOLUME 8.2 fL (7.2-11.7); MONO # 0.9 K/uL (0.0-0.8); MONO % 10.5 % (0.0-10.0); RED CELL DISTRIBUTION WIDTH 15.8 % (11.5-14.5); WHITE BLOOD COUNT 8.1 K/uL (4.8-10.8)
[2016-08-26 07:54] VITALS: BP 117/81; PULSE 81; TEMP 98.2
[2016-08-26 08:03] LABS: CHLORIDE 104 mmol/L (98-107); SODIUM 137 mmol/L (132-148)
[2016-08-26 08:05] LABS: GFR AFRICAN-AMERICAN > 60
[2016-08-26 08:06] LABS: ALKALINE PHOSPHATASE 61 U/L (38-126); ALT/SGPT 26 U/L (9-52); AST/SGOT 20 U/L (14-36); BILIRUBIN,TOTAL 0.6 mg/dL (0.2-1.3); BLOOD UREA NITROGEN 5 mg/dL (7-17); CARBON DIOXIDE 25 mmol/L (22-30)
[2016-08-26 08:07] LABS: CALCIUM 7.7 mg/dl (8.6-10.4); GLUCOSE,RANDOM 83 mg/dL (65-105); MAGNESIUM 2.1 mg/dL (1.6-2.3); PHOSPHOROUS 4.1 mg/dL (2.5-4.5)
[2016-08-26] MEDS: Primaquine 26.3 mg Tab PO SCH (10:51)
[2016-08-26] MEDS: Saccharomyces Boulardi 250 mg Cap PO SCH (10:51)
--- NOTE | 2016-08-26 16:25 | CP.PCM.DIS ---
<Parul Rubalcava - Last Filed: 08/26/16 16:12> Provider - Provider Date of Admission: 08/22/16 18:25 Attending physician: Julián Lara MD Primary care physician: none Consults: Dr. 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 f/u [facility] Hospital Course - Lab Results Lab Results: Micro Results 08/23/16 01:30 Blood-Venous Blood Culture - Preliminary NO GROWTH AFTER 3 DAYS 08/23/16 10:30 Blood-Venous Blood Culture - Preliminary NO GROWTH AFTER 3 DAYS 08/23/16 14:50 Urine,Clean Catch Urine Culture - Final No Growth (<1,000 CFU/ML) Most Recent Lab Values WBC 8.1 K/uL (4.8-10.8) 08/26/16 07:01 RBC 4.20 Mil/uL (3.80-5.20) 08/26/16 07:01 Hgb 10.2 g/dL (11.0-16.0) L 08/26/16 07:01 Hct 32.4 % (34.0-47.0) L 08/26/16 07:01 MCV 77.0 fL (81.0-99.0) L 08/26/16 07:01 MCH 24.2 pg (27.0-31.0) L 08/26/16 07:01 MCHC 31.5 g/dL (33.0-37.0) L 08/26/16 07:01 RDW 15.8 % (11.5-14.5) H 08/26/16 07:01 Plt Count 185 K/uL (130-400) 08/26/16 07:01 MPV 8.2 fL (7.2-11.7) 08/26/16 07:01 Neut % (Auto) 51.8 % (50.0-75.0) 08/26/16 07:01 Lymph % (Auto) 33.9 % (20.0-40.0) 08/26/16 07:01 Charles % (Auto) 10.5 % (0.0-10.0) H 08/26/16 07:01 Eos % (Auto) 3.3 % (0.0-4.0) 08/26/16 07:01 Baso % (Auto) 0.5 % (0.0-2.0) 08/26/16 07:01 Neut # 4.2 K/uL (1.8-7.0) 08/26/16 07:01 Lymph # 2.7 K/uL (1.0-4.3) 08/26/16 07:01 Charles # 0.9 K/uL (0.0-0.8) H 08/26/16 07:01 Eos # 0.3 K/uL (0.0-0.7) 08/26/16 07:01 Baso # 0.0 K/uL (0.0-0.2) 08/26/16 07:01 Neutrophils % (Manual) 48 % (50-75) L 08/22/16 16:49 Band Neutrophils % 41 % (0-2) H* 08/22/16 16:49 Lymphocytes % (Manual) 7 % (20-40) L 08/22/16 16:49 Monocytes % (Manual) 1 % (0-10) 08/22/16 16:49 Eosinophils % (Manual) 3 % (0-4) 08/22/16 16:49 Toxic Granulation Present 08/22/16 16:49 Platelet Estimate Normal (NORMAL) 08/22/16 16:49 Anisocytosis (manual) Slight 08/22/16 16:49 Retic Count 0.8 % (0.5-1.5) 08/24/16 07:26 pO2 42 mm/Hg (30-55) 08/23/16 20:30 VBG pH 7.40 (7.32-7.43) 08/23/16 20:30 VBG pCO2 40 mmHg (40-60) 08/23/16 20:30 VBG HCO3 24.4 mmol/L 08/23/16 20:30 VBG Total CO2 26.0 mmol/L (22-28) 08/23/16 20:30 VBG O2 Sat (Calc) 84.3 % (40-65) H 08/23/16 20:30 VBG Base Excess 0.0 mmol/L (0.0-2.0) 08/23/16 20:30 VBG Potassium 3.4 mmol/L (3.6-5.2) L 08/23/16 20:30 Sodium 141.0 mmol/l (132-148) 08/23/16 20:30 Chloride 111.0 mmol/L (98-107) H 08/23/16 20:30 Glucose 81 mg/dl (65-105) 08/23/16 20:30 Lactate 1.0 mmol/L (0.7-2.1) 08/23/16 20:30 Sodium 137 mmol/L (132-148) 08/26/16 07:01 Potassium 4.0 mmol/L (3.6-5.2) 08/26/16 07:01 Chloride 104 mmol/L (98-107) 08/26/16 07:01 Carbon Dioxide 25 mmol/L (22-30) 08/26/16 07:01 Anion Gap 12 (10-20) 08/26/16 07:01 BUN 5 mg/dL (7-17) L 08/26/16 07:01 Creatinine 0.7 MG/DL (0.7-1.2) 08/26/16 07:01 Est GFR ( Amer) > 60 08/26/16 07:01 Est GFR (Non-Af Amer) > 60 08/26/16 07:01 Random Glucose 83 mg/dL (65-105) 08/26/16 07:01 Calcium 7.7 mg/dl (8.6-10.4) L 08/26/16 07:01 Phosphorus 4.1 mg/dL (2.5-4.5) 08/26/16 07:01 Magnesium 2.1 mg/dL (1.6-2.3) 08/26/16 07:01 Iron 83 ug/dL (37-170) 08/24/16 07:26 TIBC 375 ug/dL (250-450) 08/24/16 07:26 % Saturation 22 (20-55) 08/24/16 07:26 Transferrin 263.30 mg/dL (206-381) 08/24/16 07:26 Ferritin 68.8 ng/mL 08/24/16 07:26 Total Bilirubin 0.6 mg/dL (0.2-1.3) 08/26/16 07:01 AST 20 U/L (14-36) 08/26/16 07:01 ALT 26 U/L (9-52) 08/26/16 07:01 Alkaline Phosphatase 61 U/L (38-126) 08/26/16 07:01 Lactate Dehydrogenase 409 U/L (313-618) 08/24/16 07:26 Total Protein 7.0 g/dL (6.3-8.3) 08/26/16 07:01 Albumin 3.4 g/dL (3.5-5.0) L 08/26/16 07:01 Globulin 3.6 gm/dL (2.2-3.9) 08/26/16 07:01 Albumin/Globulin Ratio 1.0 (1.0-2.1) 08/26/16 07:01 Lipase 109 U/L (23-300) 08/22/16 16:49 Procalcitonin 77.49 NG/ML (0.19-0.49) H 08/23/16 09:42 Venous Blood Potassium 3.4 mmol/L (3.6-5.2) L 08/23/16 20:30 Urine Color Yellow (YELLOW) 08/22/16 16:49 Urine Clarity Hazy (Clear) 08/22/16 16:49 Urine pH 5.0 (5.0-8.0) 08/22/16 16:49 Ur Specific Henderson 1.016 (1.003-1.030) 08/22/16 16:49 Urine Protein Negative mg/dL (NEGATIVE) 08/22/16 16:49 Urine Glucose (UA) Normal mg/dL (Normal) 08/22/16 16:49 Urine Ketones Negative mg/dL (NEGATIVE) 08/22/16 16:49 Urine Blood 2+ (NEGATIVE) H 08/22/16 16:49 Urine Nitrate Negative (NEGATIVE) 08/22/16 16:49 Urine Bilirubin Negative (NEGATIVE) 08/22/16 16:49 Urine Urobilinogen Normal mg/dL (0.2-1.0) 08/22/16 16:49 Ur Leukocyte Esterase Neg Viky/uL (Negative) 08/22/16 16:49 Urine WBC (Auto) 1 /hpf (0-5) 08/22/16 16:49 Urine RBC (Auto) 13 /hpf (0-3) H 08/22/16 16:49 Ur Squamous Epith Cells 3 /hpf (0-5) 06/01/17 16:49 Urine HCG, Qual Negative (NEGATIVE) 08/22/16 16:49 Hepatitis A IgM Ab Negative (NEGATIVE) 08/23/16 09:48 Hep Bs Antigen Negative (NEGATIVE) 08/23/16 09:48 Hep B Core IgM Ab Negative (NEGATIVE) 08/23/16 09:48 Hepatitis C Antibody Negative (NEGATIVE) 08/23/16 09:48 Blood Parasites Smear Positive (NEGATIVE) H 08/22/16 16:49 Bld Parasites Quantity 1.0 % (0-0) H 08/22/16 16:49 Blood Parasites ID Plasmodium vivax 08/22/16 16:49 - Hospital Course Hospital Course: PMHx: Hypotension, Malaria (1997 and 2003 with unknown treatment) PSHx: (2011, no complications) SHx: denies tobacco, alcohol, illicit drugs; lives in [place], homemaker Allergies: NKA FHx: denies PMD: none On admission: Patient is a 41 year old female, with PMHx of malaria, presents to the emergency department complaining of fever, chills, and body aches. She reports these symptoms began last evening and was associated with an episode of NBNB vomiting after eating. Pt reports fever was subjective, and headache was bilateral "squeezing pain" that was 8/10 at worst, but was relieved with Motrin. Patient has a history of two prior malaria infections in 1997 and 2003 and reports being treated with "29 injections." Patient was resident of [facility] during previous infections, but has lived in the for the past three years. She has not been to [place] in 5 years, and denies other travel. She admits low back pain from "muscle pull" which happened two weeks ago. Patient denies cough, shortness of breath, chest pain, abdominal pain, or diarrhea. During hospital stay: Patient's blood smear was positive for Plasmodium vivax. ID was consulted and was given Malarone 250/100mg 4 tab PO x 3 days then Primaquine 26.3mg PO was started. She will need 14 days of this and has recieved 2 days as of today. She will need to continue until 09/08. She has a Hx of two prior infections w. unknown treatment (1997, 2003). While in the hospital she was given Vanc and had extreme itchiness after the administration. She was given benadryl, pepcid, and solumedrol. Symptoms resolved. No sign of anaphylaxis. She had a leukocytosis with band and an elevated procalcitonin on admission. The leukocytosis has improved and she has been afebrile. Blood and urine cultures were negative. Electrolytes were replaced as indicated. She had some episodes of hypotension which resolved. Patient stable for discharge home. She is to follow up at the [facility] on September 06 at 1:00 PM. Patient is to take Primaquine 26.3mg one by mouth daily for 12 more days. Patient is to return to the ED if symptoms persist or return. All instructions explained to the patient and she agrees. At her clinic appointment she will receive a referral to follow up with ABDIEL Lackey. She will also need another peripheral blood smear done that day on follow up. Discharge Exam - Head Exam Head Exam: NORMAL INSPECTION - Eye Exam Eye Exam: EOMI, PERRL Pupil Exam: NORMAL ACCOMODATION - ENT Exam Additional comments: lips blisters healing. - Respiratory Exam Respiratory Exam: Clear to PA & Lateral, NORMAL BREATHING PATTERN. absent: Accessory Muscle Use, Rales, Rhonchi, Wheezes - Cardiovascular Exam Cardiovascular Exam: REGULAR RHYTHM, +S1, +S2 - GI/Abdominal Exam GI & Abdominal Exam: Normal Bowel Sounds, Soft. absent: Distended, Firm, Guarding, Tenderness - Extremities Exam Extremities exam: pedal edema - Back Exam Back exam: NORMAL INSPECTION. absent: CVA tenderness (L), CVA tenderness (R), paraspinal tenderness - Neurological Exam Neurological exam: Alert, Oriented x3 - Psychiatric Exam Psychiatric exam: Normal Affect, Normal Mood - Skin Skin Exam: Dry, Intact, Warm Discharge Plan - Discharge Medications Prescriptions: Primaquine 26.3 mg PO DAILY #12 tab - Follow Up Plan Condition: GOOD Disposition: HOME/ ROUTINE Instructions: Primaquine (By mouth), Malaria (DC) Additional Instructions: Patient stable for discharge home. She is to follow up at the [facility] on September 06 at 1:00 PM. Patient is to take Primaquine 26.3mg one by mouth daily for 12 more days. Patient is to return to the ED if symptoms persist or return. All instructions explained to the patient and she agrees. At her clinic appointment she will receive a referral to follow up with Dr. Mangia, ID. She will also need another peripheral blood smear done that day on follow up. Referrals: [facility] [Outside] Benito Leyva MD [Staff Provider] - <Carroll Downey - Last Filed: 08/26/16 17:16> Provider - Provider Date of Admission: 08/22/16 18:25 Attending physician: Julián Lara MD Hospital Course - Lab Results Lab Results: Micro Results 08/23/16 01:30 Blood-Venous Blood Culture - Preliminary NO GROWTH AFTER 3 DAYS 08/23/16 10:30 Blood-Venous Blood Culture - Preliminary NO GROWTH AFTER 3 DAYS 08/23/16 14:50 Urine,Clean Catch Urine Culture - Final No Growth (<1,000 CFU/ML) Most Recent Lab Values WBC 8.1 K/uL (4.8-10.8) 08/26/16 07:01 RBC 4.20 Mil/uL (3.80-5.20) 08/26/16 07:01 Hgb 10.2 g/dL (11.0-16.0) L 08/26/16 07:01 Hct 32.4 % (34.0-47.0) L 08/26/16 07:01 MCV 77.0 fL (81.0-99.0) L 08/26/16 07:01 MCH 24.2 pg (27.0-31.0) L 08/26/16 07:01 MCHC 31.5 g/dL (33.0-37.0) L 08/26/16 07:01 RDW 15.8 % (11.5-14.5) H 08/26/16 07:01 Plt Count 185 K/uL (130-400) 08/26/16 07:01 MPV 8.2 fL (7.2-11.7) 08/26/16 07:01 Neut % (Auto) 51.8 % (50.0-75.0) 08/26/16 07:01 Lymph % (Auto) 33.9 % (20.0-40.0) 08/26/16 07:01 Charles % (Auto) 10.5 % (0.0-10.0) H 08/26/16 07:01 Eos % (Auto) 3.3 % (0.0-4.0) 08/26/16 07:01 Baso % (Auto) 0.5 % (0.0-2.0) 08/26/16 07:01 Neut # 4.2 K/uL (1.8-7.0) 08/26/16 07:01 Lymph # 2.7 K/uL (1.0-4.3) 08/26/16 07:01 Charles # 0.9 K/uL (0.0-0.8) H 08/26/16 07:01 Eos # 0.3 K/uL (0.0-0.7) 08/26/16 07:01 Baso # 0.0 K/uL (0.0-0.2) 08/26/16 07:01 Neutrophils % (Manual) 48 % (50-75) L 08/22/16 16:49 Band Neutrophils % 41 % (0-2) H* 08/22/16 16:49 Lymphocytes % (Manual) 7 % (20-40) L 08/22/16 16:49 Monocytes % (Manual) 1 % (0-10) 08/22/16 16:49 Eosinophils % (Manual) 3 % (0-4) 08/22/16 16:49 Toxic Granulation Present 08/22/16 16:49 Platelet Estimate Normal (NORMAL) 08/22/16 16:49 Anisocytosis (manual) Slight 08/22/16 16:49 Retic Count 0.8 % (0.5-1.5) 08/24/16 07:26 pO2 42 mm/Hg (30-55) 08/23/16 20:30 VBG pH 7.40 (7.32-7.43) 08/23/16 20:30 VBG pCO2 40 mmHg (40-60) 08/23/16 20:30 VBG HCO3 24.4 mmol/L 08/23/16 20:30 VBG Total CO2 26.0 mmol/L (22-28) 08/23/16 20:30 VBG O2 Sat (Calc) 84.3 % (40-65) H 08/23/16 20:30 VBG Base Excess 0.0 mmol/L (0.0-2.0) 08/23/16 20:30 VBG Potassium 3.4 mmol/L (3.6-5.2) L 08/23/16 20:30 Sodium 141.0 mmol/l (132-148) 08/23/16 20:30 Chloride 111.0 mmol/L (98-107) H 08/23/16 20:30 Glucose 81 mg/dl (65-105) 08/23/16 20:30 Lactate 1.0 mmol/L (0.7-2.1) 08/23/16 20:30 Sodium 137 mmol/L (132-148) 08/26/16 07:01 Potassium 4.0 mmol/L (3.6-5.2) 08/26/16 07:01 Chloride 104 mmol/L (98-107) 08/26/16 07:01 Carbon Dioxide 25 mmol/L (22-30) 08/26/16 07:01 Anion Gap 12 (10-20) 08/26/16 07:01 BUN 5 mg/dL (7-17) L 08/26/16 07:01 Creatinine 0.7 MG/DL (0.7-1.2) 08/26/16 07:01 Est GFR ( Amer) > 60 08/26/16 07:01 Est GFR (Non-Af Amer) > 60 08/26/16 07:01 Random Glucose 83 mg/dL (65-105) 08/26/16 07:01 Calcium 7.7 mg/dl (8.6-10.4) L 08/26/16 07:01 Phosphorus 4.1 mg/dL (2.5-4.5) 08/26/16 07:01 Magnesium 2.1 mg/dL (1.6-2.3) 08/26/16 07:01 Iron 83 ug/dL (37-170) 08/24/16 07:26 TIBC 375 ug/dL (250-450) 08/24/16 07:26 % Saturation 22 (20-55) 08/24/16 07:26 Transferrin 263.30 mg/dL (206-381) 08/24/16 07:26 Ferritin 68.8 ng/mL 08/24/16 07:26 Total Bilirubin 0.6 mg/dL (0.2-1.3) 08/26/16 07:01 AST 20 U/L (14-36) 08/26/16 07:01 ALT 26 U/L (9-52) 08/26/16 07:01 Alkaline Phosphatase 61 U/L (38-126) 08/26/16 07:01 Lactate Dehydrogenase 409 U/L (313-618) 08/24/16 07:26 Total Protein 7.0 g/dL (6.3-8.3) 08/26/16 07:01 Albumin 3.4 g/dL (3.5-5.0) L 08/26/16 07:01 Globulin 3.6 gm/dL (2.2-3.9) 08/26/16 07:01 Albumin/Globulin Ratio 1.0 (1.0-2.1) 08/26/16 07:01 Lipase 109 U/L (23-300) 08/22/16 16:49 Procalcitonin 6.14 NG/ML (0.19-0.49) H 08/26/16 07:01 Venous Blood Potassium 3.4 mmol/L (3.6-5.2) L 08/23/16 20:30 Urine Color Yellow (YELLOW) 08/22/16 16:49 Urine Clarity Hazy (Clear) 08/22/16 16:49 Urine pH 5.0 (5.0-8.0) 08/22/16 16:49 Ur Specific Henderson 1.016 (1.003-1.030) 08/22/16 16:49 Urine Protein Negative mg/dL (NEGATIVE) 08/22/16 16:49 Urine Glucose (UA) Normal mg/dL (Normal) 08/22/16 16:49 Urine Ketones Negative mg/dL (NEGATIVE) 08/22/16 16:49 Urine Blood 2+ (NEGATIVE) H 08/22/16 16:49 Urine Nitrate Negative (NEGATIVE) 08/22/16 16:49 Urine Bilirubin Negative (NEGATIVE) 08/22/16 16:49 Urine Urobilinogen Normal mg/dL (0.2-1.0) 08/22/16 16:49 Ur Leukocyte Esterase Neg Viky/uL (Negative) 08/22/16 16:49 Urine WBC (Auto) 1 /hpf (0-5) 08/22/16 16:49 Urine RBC (Auto) 13 /hpf (0-3) H 08/22/16 16:49 Ur Squamous Epith Cells 3 /hpf (0-5) 08/22/16 16:49 Urine HCG, Qual Negative (NEGATIVE) 08/22/16 16:49 Hepatitis A IgM Ab Negative (NEGATIVE) 08/23/16 09:48 Hep Bs Antigen Negative (NEGATIVE) 08/23/16 09:48 Hep B Core IgM Ab Negative (NEGATIVE) 08/23/16 09:48 Hepatitis C Antibody Negative (NEGATIVE) 08/23/16 09:48 Blood Parasites Smear Positive (NEGATIVE) H 08/22/16 16:49 Bld Parasites Quantity 1.0 % (0-0) H 08/22/16 16:49 Blood Parasites ID Plasmodium vivax 08/22/16 16:49 Attending/Attestation - Attestation I have personally seen and examined this patient.: Yes I have fully participated in the care of the patient.: Yes I have reviewed all pertinent clinical information, including history, physical exam and plan: Yes Notes (Text): 08/26/16 17:15 Patient was seen and examined at bedside with the resident Denies any new complaints Patient to is afebrile. Normal fever or chills or malaise reported. We will discharge the patient to home. Discharge prescriptions given Discussed the discharge plan with the patient and she verbalized understanding. I agree with the above discharge note by the resident.
== END 2016-08-26 15:10 | disposition home or self-care (01) | DRG 423 ==
LOC: C.ER 16:07 → C.9E 18:25 → C.3T 18:44
PROVIDERS: ADMIT Internal Medicine; ATTEND Internal Medicine
DX: B51.9 Plasmodium vivax malaria without complication (principal); E87.6 Hypokalemia; R74.0 Nonspecific elevation of levels of transaminase and lactic acid dehydrogenase [LDH]; D64.9 Anemia, unspecified; L29.9 Pruritus, unspecified; T36.8X5A Adverse effect of other systemic antibiotics, initial encounter